=== PATIENT | male | born 1990 | race Hispanic/Latino ===

== ENCOUNTER → 2019-10-01 | Outpatient (CLI) | payer OTHER ==
[~2019-10-01] MED LIST: ISOVUE-370 76% 100ML VIAL (Q9967) As Ordered ONE
--- NOTE | 2019-10-01 12:36 | REP ---
SOFT-TISSUE CT STUDY OF THE NECK WITH IV CONTRAST: HISTORY: Right neck mass. Posterior neck mass. Rule out neoplasm. CT CONTRAST DOSE: 75 mL of intravenous Isovue 370. I am informed that the patient had a small extravasation of contrast with the initial injection attempt, approximately [address] FINDINGS: Thyroid lobes are normal and symmetric. The lung apices are clear. The visualized mediastinum is unremarkable. The submandibular glands are normal and symmetric as are the parotid glands. No abnormal fluid collection is seen. No vascular abnormality is seen. The tonsillar and peritonsillar soft tissues are unremarkable. Floor of mouth structures are intact. No glottic or subglottic airway lesion is seen. There are small mucous retention cysts in the floor the maxillary sinuses bilaterally, largest on the left measuring 1.8 cm. The visualized paranasal sinuses are otherwise clear. There are scattered normal appearing anterior cervical lymph nodes bilaterally. The largest is on the right measuring 0.9 cm in short axis dimension. There is a spherical posterior cervical lymph node at the level of the mandibular angle. This measures 0.8 x 1.0 x 1.0 cm. There are to two or three adjacent posterior cervical lymph nodes which are even smaller. No posterior cervical mass is seen. No abnormal fluid collection is seen. IMPRESSION: No definitely enlarged lymph nodes seen on either side. No cyst or mass is observed. There is one fairly superficially positioned right posterior cervical lymph node which is spherical 1 cm in greatest diameter. This could correspond to a palpable finding. Otherwise negative. Electronically Signed by Bello Hagan MD 10/01/2019 01:25 P
== END ==
LOC: M RAD 10:58
PROVIDERS: ATTEND Otolaryngology
DX: R59.0 Localized enlarged lymph nodes (principal)
CPT/HCPCS: 70491; Q9967

== ENCOUNTER → 2019-10-15 | Outpatient (CLI) | payer OTHER ==
[~2019-10-15] MED LIST changes: -ISOVUE-370 76% 100ML VIAL (Q9967) As Ordered ONE; +LIDOCAINE 1% MDV 20ML VIAL As Ordered ONE
[2019-10-15 12:30] VITALS: BP 145/82
--- NOTE | 2019-10-15 14:28 | REP ---
Ultrasound-guided right cervical lymph node biopsy This procedure was performed by EDITA Melendrez, under the direct supervision of Dr. Bruner. The risks and the benefits of the procedure were explained to the patient and informed consent was obtained both verbally and written. Directly prior to the start of the procedure, a formal time out was completed in the procedure room. The right cervical lymph node was localized using ultrasound guidance. The skin was prepped and draped in a sterile fashion. 3 ml of 1% lidocaine 10 mg/ml was used as a local anesthetic. Using ultrasound guidance 8 fine-needle aspirations were obtained using 25 gauge needles of the right cervical lymph node. The patient tolerated the procedure well and there were no immediate complications. After the appropriate amount of monitored convalescence the patient was discharged from the department. Reviewed by EDITA Melendrez 10/15/2019 01:57 P Electronically Signed by Kendall Bruner MD 10/15/2019 02:21 P
== END ==
LOC: M IRPRO 11:30
PROVIDERS: ATTEND Otolaryngology
DX: R59.0 Localized enlarged lymph nodes (principal)

== ENCOUNTER → 2020-03-17 | Outpatient (CLI) | payer OTHER ==
[~2020-03-17] MED LIST changes: +ISOVUE-370 76% 100ML VIAL As Ordered ONE; +KETO10TAB PO; -LIDOCAINE 1% MDV 20ML VIAL As Ordered ONE
--- NOTE | 2020-03-17 07:59 | REPVR ---
PROCEDURE INFORMATION: Exam: CT Neck With Contrast Exam date and time: 03/17/2020 7:39 AM Age: 29 years old Clinical indication: Mass, lump, or swelling in neck; Additional info: Enlarged lymph nodes TECHNIQUE: Imaging protocol: Computed tomography images of the neck with intravenous contrast. Radiation optimization: All CT scans at this facility use at least one of these dose optimization techniques: automated exposure control; mA and/or kV adjustment per patient size (includes targeted exams where dose is matched to clinical indication); or iterative reconstruction. Contrast material: ISOVUE 370; Contrast volume: 75 ml; Contrast route: INTRAVENOUS (IV); COMPARISON: CT Neck with contrast 10/01/2019 11:20 AM FINDINGS: Sinuses: There is mild polypoid mucosal thickening along the floors of the maxillary sinuses bilaterally. Nasopharynx: Unremarkable. Oropharynx: Unremarkable. No significant tonsillar enlargement. Hypopharynx: Unremarkable. Larynx: Unremarkable. Normal epiglottis. Retropharyngeal space: Unremarkable. Submandibular/Parotid glands: Normal. Glands are normal in size. Thyroid: Normal. No enlarged or calcified nodules. Lymph nodes: There are small, scattered multilevel cervical lymph nodes. The site of palpable abnormality along the right lateral neck appears to correlate with a 9 x 7 mm lymph node, slightly decreased in size as compared to preceding examination. There is a 15 x 10 mm left submandibular lymph node. This was present previously and appears unchanged. Trachea: Visualized trachea is unremarkable. Lungs: Unremarkable as visualized. Bones/joints: Unremarkable. No acute fracture. Soft tissues: Unremarkable. No significant soft tissue swelling. IMPRESSION: Stable scattered multilevel cervical lymph nodes, unchanged. Dominant left submandibular lymph node measures up to 15 x 10 mm in diameter. No new or progressive abnormality. Electronically signed by: Lacy Stewart On 03/17/2020 07:59:20 AM
== END ==
LOC: M RAD 07:15
PROVIDERS: ATTEND Otolaryngology
DX: R59.0 Localized enlarged lymph nodes (principal)
CPT/HCPCS: 70491; Q9967

== ENCOUNTER 2020-05-09 13:01 | Emergency (ER) | payer OTHER ==
[2020-05-09 13:27] LABS: BASO # 0.1 10^3/uL (0.0-0.2); BASO % 0.5 % (0.0-1.0); EOS # 0.3 10^3/uL (0.0-0.5); EOS % 3.4 % (0.0-3.0); HEMATOCRIT 47.5 % (42.0-52.0); HEMOGLOBIN 16.2 g/dl (13.5-17.5); LYMPH # 2.8 10^3/uL (1.5-5.0); LYMPH % 29.1 % (24.0-44.0); MEAN CORPUSCULAR HEMOGLOBIN 29.6 pg (27.0-33.0); MEAN CORPUSCULAR HGB CONC 34.1 g/dl (32.0-36.5); MEAN CORPUSCULAR VOLUME 86.8 fl (80.0-96.0); MONO # 0.7 10^3/uL (0.0-0.8); MONO % 7.7 % (0.0-5.0); NEUTROPHILS # 5.6 10^3/uL (1.5-8.5); NEUTROPHILS % 58.9 % (36.0-66.0); PLATELET COUNT, AUTOMATED 267 10^3/uL (150-450); RED BLOOD COUNT 5.47 10^6/uL (4.30-6.10); WHITE BLOOD COUNT 9.5 10^3/uL (4.0-10.0)
[2020-05-09] MEDS ORDERED: NS 1,000 ML IV ONE (13:30)
[2020-05-09] MEDS ORDERED: ISOVUE-370 76% 100ML VIAL As Ordered ONE (13:30)
[2020-05-09 13:42] LABS: INR 0.93; PROTHROMBIN TIME 12.7 SECONDS (12.5-14.3)
[2020-05-09 13:43] LABS: PARTIAL THROMBOPLASTIN TIME 27.5 SECONDS (24.2-38.5)
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
[2020-05-09 13:54] LABS: ALBUMIN 4.5 GM/DL (3.2-5.2); ALT/SGPT 43 U/L (12-78); AMYLASE 55 U/L (25-115); BILIRUBIN,DIRECT 0.1 MG/DL (0.0-0.2); BILIRUBIN,TOTAL 0.5 MG/DL (0.2-1.0); CK-MB VALUE MASS < 1.0 NG/ML (<3.6); CPK CREATINE PHOSPHOKINASE 199 U/L (39-308); ETHYL ALCOHOL (ETHANOL) < 0.003 % (0.000-0.010); LIPASE 130 U/L (73-393); TROPONIN I < 0.02 NG/ML (< 0.10)
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
[2020-05-09] MEDS ORDERED: KETOROLAC 30 MG/ML 1ML VIAL IV ONE (14:15)
[2020-05-09 14:30] VITALS: BP 161/88
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
[2020-05-09] MEDS ORDERED: KETO10TAB PO (15:41)
== END 2020-05-09 15:56 | disposition home or self-care (01) ==
LOC: EDBD 13:01 → M ED 13:01
DX: S09.90XA Unspecified injury of head, initial encounter (principal); M54.2 Cervicalgia; R10.12 Left upper quadrant pain; V49.40XA Driver injured in collision with unspecified motor vehicles in traffic accident, initial encounter; Y92.410 Unspecified street and highway as the place of occurrence of the external cause; J34.1 Cyst and mucocele of nose and nasal sinus; K76.0 Fatty (change of) liver, not elsewhere classified; N28.1 Cyst of kidney, acquired; Z79.899 Other long term (current) drug therapy
CPT/HCPCS: 70450; 71045; 71260; 72125; 74177; 80047; 80076; 82150; 82550; 82553; 83690; 84484; 85025; 85610; 85730; 86850; 86900; 86901; 93041; 94760; 96361; 96374; 99284; G0480; J1885; Q9967

== ENCOUNTER → 2020-10-05 | Outpatient (CLI) | payer OTHER ==
[~2020-10-05] MED LIST changes: -ISOVUE-370 76% 100ML VIAL As Ordered ONE
--- NOTE | 2020-10-06 04:24 | REP ---
INDICATION: SPRAIN COMPARISON: None. TECHNIQUE: AP, lateral views of the right tibia/fibula FINDINGS: The osseous structures and joint spaces are intact and normal. There is no evidence for acute fracture or dislocation. Surrounding soft tissues are unremarkable. No subcutaneous emphysema or radiodense foreign body. IMPRESSION: Age-appropriate right tibia/fibular radiographs. No acute fracture or dislocation. <Electronically signed by Tang Butler > 10/06/20 0427
--- NOTE | 2020-10-06 04:27 | REP ---
INDICATION: SPRAIN COMPARISON: None. TECHNIQUE: AP, lateral, bilateral oblique views. FINDINGS: No acute fracture or dislocation. Skeletal structures and joint spaces are intact and normal. Ankle mortise appears stable. No subcutaneous emphysema or radiodense foreign body. IMPRESSION: Normal right ankle radiograph series. <Electronically signed by Tang Butler > 10/06/20 0428
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
== END ==
LOC: M WUC 14:18
PROVIDERS: ATTEND Physician Assistant
DX: S93.401A Sprain of unspecified ligament of right ankle, initial encounter (principal); S93.691A Other sprain of right foot, initial encounter; X58.XXXA Exposure to other specified factors, initial encounter; Y92.9 Unspecified place or not applicable

== ENCOUNTER 2021-02-11 09:00 | Emergency (ER) | payer OTHER ==
[~2021-02-11] VITALS: Ht 177.8 cm; Wt 98.0 kg
[2021-02-11 11:13] LABS: HEMATOCRIT 44.2 % (42.0-52.0); HEMOGLOBIN 14.7 g/dl (13.5-17.5); MEAN CORPUSCULAR HEMOGLOBIN 29.1 pg (27.0-33.0); MEAN CORPUSCULAR HGB CONC 33.3 g/dl (32.0-36.5); MEAN CORPUSCULAR VOLUME 87.4 fl (80.0-96.0); PLATELET COUNT, AUTOMATED 204 10^3/uL (150-450); RED BLOOD COUNT 5.06 10^6/uL (4.30-6.10); WHITE BLOOD COUNT 6.3 10^3/uL (4.0-10.0)
[2021-02-11 11:46] LABS: ALBUMIN 4.3 GM/DL (3.2-5.2); ALT/SGPT 39 U/L (12-78); ATYPICAL LYMPH 9 % (0-5); BASOPHILS 1 % (0-1); BILIRUBIN,DIRECT 0.2 MG/DL (0.0-0.2); BILIRUBIN,TOTAL 0.9 MG/DL (0.2-1.0); BLOOD UREA NITROGEN 11 MG/DL (7-18); CALCIUM LEVEL 8.9 MG/DL (8.5-10.1); CARBON DIOXIDE LEVEL 29 MEQ/L (21-32); CHLORIDE LEVEL 109 MEQ/L (98-107); CREATININE FOR GFR 0.81 MG/DL (0.70-1.30); EOSINOPHILS 3 % (0-3); GLOMERULAR FILTRATION RATE > 60.0 (>60); GLUCOSE, FASTING 91 MG/DL (70-100); LIPASE 698 U/L (73-393); LYMPHOCYTES 35 % (16-44); MONOCYTES 5 % (0-5); NEUTROPHILS 47 % (28-66); PLATELET ESTIMATE NORMAL (NORMAL); POTASSIUM SERUM 4.4 MEQ/L (3.5-5.1); SODIUM LEVEL 141 MEQ/L (136-145); TOTAL PROTEIN 7.5 GM/DL (6.4-8.2)
--- NOTE | 2021-02-11 11:59 | REP ---
INDICATION: b/l scrotal/testicular pain. COMPARISON: None. TECHNIQUE: Real-time sonographic evaluation of scrotum and contents performed, as well as both inguinal regions. FINDINGS: The testicles are normal in size and echotexture, right testicle measuring 4.3 x 2.3 x 3.3 cm and left testicle 4.3 x 2.3 x 3.3 cm. There is no testicular mass or torsion. Blood flow is seen in each testicle with duplex Doppler evaluation. A 2 mm cyst is seen in the head of the right epididymis. A 4 mm cyst is seen in the appendix of the left epididymis. No inguinal hernia is seen at rest and with Valsalva maneuver. IMPRESSION: Essentially negative scrotal and bilateral inguinal ultrasound. <Electronically signed by Kendall Bruner > 02/11/21 [id number]
[2021-02-11 13:36] LABS: MONO REFLEX EBV COMP NEGATIVE (NEGATIVE)
--- NOTE | 2021-02-11 13:57 | REP ---
INDICATION: elevated lipase, LLQ TTP, b/l scrotal pain COMPARISON: 05/09/2020. TECHNIQUE: CT Scan of the abdomen and pelvis was performed with intravenous administration of 100 cc of Isovue 370, without oral contrast. Sagittal and coronal reconstruction images are performed. FINDINGS: Lung bases: Unremarkable. Liver: There is diffuse fatty infiltration of the liver. Gallbladder: Unremarkable. Spleen: Normal. Adrenals: Normal. Pancreas: Normal. Kidneys: In the lower pole the left kidney there is a 3 cm nodule. This could represent a cyst but density measurements are greater than that of water. Small and large bowel: Unremarkable. Free fluid: None. Abdominal aorta: No aneurysm or dissection. Adenopathy: None. Appendix: Not inflamed. Osseous structures: Unremarkable. Pelvis: No mass. IMPRESSION: Diffuse fatty infiltration of the liver. 3 cm hypodense nodule lower pole left kidney. The density within the nodule the is not compatible with a simple cyst, this may represent a complex cyst or solid nodule. Recommend further evaluation with dedicated nonemergent MRI of the kidneys with and without contrast. <Electronically signed by Kendall Bruner > 02/11/21 [id number]
[2021-02-11 14:03] LABS: GC DNA AMPLIFICATION NEGATIVE (NEGATIVE)
[2021-02-11 14:54] VITALS: BP 132/80
[2021-02-12 18:11] LABS: EBV AB TO NUCLEAR ANTIGEN >600.0 U/mL (0.0-17.9); EBV VIRAL CAPSID AG IgM <36.0 U/mL (0.0-35.9)
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
== END 2021-02-11 14:56 | disposition home or self-care (01) ==
LOC: M ED 09:00
DX: N50.3 Cyst of epididymis (principal); K76.0 Fatty (change of) liver, not elsewhere classified; R74.8 Abnormal levels of other serum enzymes; N28.89 Other specified disorders of kidney and ureter; I10 Essential (primary) hypertension

== ENCOUNTER 2021-02-17 16:18 | Emergency (ER) | payer OTHER ==
[~2021-02-17] VITALS: Ht 177.8 cm; Wt 97.7 kg
[2021-02-17] MEDS ORDERED: MORPHINE 4 MG/ML 1ML VIAL/SYRINGE (J2270) IV ONE (19:30)
[2021-02-17] MEDS ORDERED: GI COCKTAIL 50ML BTL(HYOSCYAMINE/MAALOX/LIDOCAINE VISCOUS)(1:3:1) PO ONE (19:30)
[2021-02-17] MEDS ORDERED: NS 1,000 ML IV ONE (19:30)
[2021-02-17] MEDS ORDERED: PANTOPRAZOLE 40MG VIAL (C9113 PER 1) IV ONE (19:30)
[2021-02-17 20:00] LABS: BASO % 0.3 % (0.0-1.0); EOS # 0.3 10^3/uL (0.0-0.5); HEMATOCRIT 44.3 % (42.0-52.0); HEMOGLOBIN 14.9 g/dl (13.5-17.5); LYMPH % 33.3 % (24.0-44.0); MEAN CORPUSCULAR HEMOGLOBIN 28.9 pg (27.0-33.0); MEAN CORPUSCULAR HGB CONC 33.6 g/dl (32.0-36.5); MONO # 0.7 10^3/uL (0.0-0.8); MONO % 7.2 % (2.0-8.0); NEUTROPHILS % 55.9 % (36.0-66.0); PLATELET COUNT, AUTOMATED 213 10^3/uL (150-450); RED BLOOD COUNT 5.15 10^6/uL (4.30-6.10)
[2021-02-17 20:33] LABS: ALBUMIN 4.6 GM/DL (3.2-5.2); BILIRUBIN,DIRECT 0.2 MG/DL (0.0-0.2); BILIRUBIN,TOTAL 0.7 MG/DL (0.2-1.0); TOTAL PROTEIN 7.8 GM/DL (6.4-8.2)
[2021-02-17 22:47] LABS: GC DNA AMPLIFICATION NEGATIVE (NEGATIVE)
[2021-02-17] MEDS ORDERED: BACTRIM 160MG/800MG DS TAB PO ONE (23:20)
[2021-02-17 23:35] VITALS: BP 121/73
[2021-02-17] MEDS ORDERED: CARA1TAB6 PO (23:40)
[2021-02-17] MEDS ORDERED: OMEP-221 PO (23:40)
[2021-02-17] MEDS ORDERED: MACR100C43 PO (23:40)
== END 2021-02-17 23:50 | disposition home or self-care (01) ==
LOC: M ED 21:02
DX: R10.13 Epigastric pain (principal); R30.0 Dysuria; I10 Essential (primary) hypertension; Z79.899 Other long term (current) drug therapy
CPT/HCPCS: 80047; 80076; 81001; 83690; 85025; 87086; 87661; 96361; 96374; 96375; 99284; C9113; J2270

== ENCOUNTER → 2021-02-22 | Outpatient (CLI) | payer OTHER ==
[~2021-02-22] MED LIST changes: +CARA1TAB6 PO; +MACR100C43 PO; +OMEP-221 PO; +PROHANCE 279.3MG/ML 15ML VIAL As Ordered ONE; +PROHANCE 279.3MG/ML 5ML VIAL As Ordered ONE
--- NOTE | 2021-02-22 16:51 | REP ---
INDICATION: LT KIDNEY NODULE. COMPARISON: CT 02/11/2021. TECHNIQUE: Multiple sequences obtained in the axial coronal planes prior to and following the intravenous administration of 20 mL ProHance. FINDINGS: The previously identified nodule in the lower left kidney is again visualized. It has slightly lobulated margins with a maximum diameter of 3 cm. It demonstrates characteristics of hemorrhagic or proteinaceous contents with no internal enhancement. This is consistent with a complex hemorrhagic or proteinaceous cyst. There is a subcentimeter cyst in the upper pole of the right kidney. There is no hydronephrosis bilaterally. There is evidence of fatty infiltration of the liver. No mass is seen in the visualized liver. The spleen, adrenals and pancreas are unremarkable. There is no evidence of adenopathy or free fluid in the abdomen. IMPRESSION: The previously identified nodule in the left kidney is consistent with a proteinaceous or hemorrhagic cyst. No suspicious finding. <Electronically signed by Kendall Bruner > 02/22/21 [id number]
== END ==
LOC: M RAD 13:46
PROVIDERS: ATTEND Physician Assistant
DX: R93.422 Abnormal radiologic findings on diagnostic imaging of left kidney (principal); N28.1 Cyst of kidney, acquired; N28.89 Other specified disorders of kidney and ureter
CPT/HCPCS: 74183; A9576

== ENCOUNTER 2021-05-17 06:04 | Emergency (ER) | payer OTHER ==
[~2021-05-17] VITALS: Ht 175.3 cm; Wt 97.5 kg
[~2021-05-17 06:04] MED LIST changes: -PROHANCE 279.3MG/ML 15ML VIAL As Ordered ONE; -PROHANCE 279.3MG/ML 5ML VIAL As Ordered ONE
--- OUTSIDE RECORDS SUMMARY | 2021-05-17 06:08 | CCD ---
Author Author [facility] Organization [facility] Address Unknown Phone Unavailable Care Team Providers Care Electro Mechanical Technologist Name Role Phone RAISSAE, A ZEESHAN PA Unavailable Unavailable LETTIERE, A ZEESHAN PA Unavailable Unavailable LETTIERE, A ZEESHAN PA Unavailable Unavailable LETTIERE, A ZEESHAN PA Unavailable Unavailable LETTIERE, A ZEESHAN PA Unavailable Unavailable LETTIERE, A ZEESHAN PA Unavailable Unavailable LETTIERE, A ZEESHAN PA Unavailable Unavailable LETTIERE, A ZEESHAN PA Unavailable Unavailable LETTIERE, A ZEESHAN PA Unavailable Unavailable LETTIERE, A ZEESHAN PA Unavailable Unavailable LETTIERE, A ZEESHAN PA Unavailable Unavailable LETTIERE, A ZEESHAN PA Unavailable Unavailable LETTIERE, A ZEESHAN PA Unavailable Unavailable LETTIERE, A ZEESHAN PA Unavailable Unavailable LETTIERE, A ZEESHAN PA Unavailable Unavailable LETTIERE, A ZEESHAN PA Unavailable Unavailable LETTIERE, A ZEESHAN PA Unavailable Unavailable LETTIERE, A ZEESHAN PA Unavailable Unavailable LETTIERE, A ZEESHAN PA Unavailable Unavailable LETTIERE, A ZEESHAN PA Unavailable Unavailable LETTIERE, A ZEESHAN PA Unavailable Unavailable LETTIERE, A ZEESHAN PA Unavailable Unavailable LETTIERE, A ZEESHAN PA Unavailable Unavailable LETTIERE, A ZEESHAN PA Unavailable Unavailable LETTIERE, A ZEESHAN PA Unavailable Unavailable LETTIERE, A ZEESHAN PA Unavailable Unavailable LETTIERE, A ZEESHAN PA Unavailable Unavailable LETTIERE, A ZEESHAN PA Unavailable Unavailable LETTIERE, A ZEESHAN PA Unavailable Unavailable LETTIERE, A ZEESHAN PA Unavailable Unavailable LETTIERE, A ZEESHAN PA Unavailable Unavailable Re-disclosure Warning The records that you are about to access may contain information from federally-assisted alcohol or drug abuse programs. If such information is present, then the following federally mandated warning applies: This information has been disclosed to you from records protected by federal confidentiality rules (42 CFR part 2). The federal rules prohibit you from making any further disclosure of this information unless further disclosure is expressly permitted by the written consent of the person to whom it pertains or as otherwise permitted by 42 CFR part 2. A general authorization for the release of medical or other information is NOT sufficient for this purpose. The Federal rules restrict any use of the information to criminally investigate or prosecute any alcohol or drug abuse patient.The records that you are about to access may contain highly sensitive health information, the redisclosure of which is protected by Article 27-F of the [facility] Public Health law. If you continue you may have access to information: Regarding HIV / AIDS; Provided by facilities licensed or operated by the [facility] Office of Mental Health; or Provided by the [facility] Office for People With Developmental Disabilities. If such information is present, then the following [facility] mandated warning applies: This information has been disclosed to you from confidential records which are protected by state law. State law prohibits you from making any further disclosure of this information without the specific written consent of the person to whom it pertains, or as otherwise permitted by law. Any unauthorized further disclosure in violation of state law may result in a fine or custodial sentence or both. A general authorization for the release of medical or other information is NOT sufficient authorization for further disc losure. Encounters Encounter Providers Location Date Indications Data Source(s ) Outpatient Attender: ZEESHAN parsons 10/05/2020 03:05:00 PM EDT [facility] ([facility], [facility]) Medications Medication Brand Name Start Date Product Form Dose Route Admi nistrative Instructions Pharmacy Instructions Status Indications Reaction Description Data Source(s) No Active Medications 10/05/2020 12:00:00 AM EDT completed [facility] ([facility], [facility]) Aircast Sport Ankle Brace/Right 10/05/2020 12:00:00 AM EDT active [facility] ([facility], [facility]) Ibuprofen 800 MG Oral Tablet Ibuprofen 10/05/2020 12:00:00 AM EDT active [facility] ([facility], [facility]) Cyclobenzaprine hydrochloride 10 MG Oral Tablet Cyclobenzapr ine HCL 10/05/2020 12:00:00 AM EDT [facility] Insurance Providers Payer name Policy type / Coverage type Policy ID Covered libertarian ID Covered libertarian's relationship to hernandez Policy Hernandez Plan Information [facility] ACTIVE DUTY [id number] Problems, Conditions, and Diagnoses No Information Surgeries/Procedures No Information Results ID Date Data Source [id number] 01/31/2021 01:38:00 PM EDT [facility] Name Value Range Interpretation Code Description Data Yuko rce(s) Supporting Document(s) SARS coronavirus 2 RNA Not Detected [facility] [place] This lab was ordered by [facility] and reported by [facility]. Procedure Social History No Information Vital Signs ID Date Data Source UNK Name Value Range Interpretation Code Description Data Source(s) Systolic blood pressure 148 mm[Hg] 148 mm[Hg] [facility]) Diastolic blood pressure 89 mm[Hg] 89 mm[Hg] [facility] ([facility], [facility]) Heart rate 67 /min 67 /min [facility] ([facility], [facility]) Respiratory rate 14 /min 14 /min [facility] ( [facility], [facility]) Oxygen saturation in Arterial blood by Pulse oximetry 98 % 98 % [facility] ([facility], [facility]) Body temperature 98.7 [degF] 98.7 [degF] [facility] ([facility], [facility]) Body weight 220.00 [lb_av] 220.00 [lb_av] [facility] ([facility], [facility]) Body height 70 [in_i] 70 [in_i] [facility], [facility]) 5'10" Body mass index (BMI) [Ratio] 31.6 kg/m2 31.6 k g/m2 [facility] ([facility], [facility]) Body height 69 [in_i] 69 [in_i] [facility] ([facility], ) 5'9" Body weight 220.00 [lb_av] 220.00 [lb_av] [facility] ([facility]) Body mass index (BMI) [Ratio] 32.5 kg/m2 32.5 k g/m2 [facility], ) Body weight 99.792 kg 99.792 kg [facility] ([facility], )
--- OUTSIDE RECORDS SUMMARY | 2021-05-17 07:47 | CCD ---
Author Author [facility] Organization [facility] Address Unknown Phone Unavailable Care Team Providers Care Sfdc Developer Name Role Phone RAISSAE, A ZEESHAN PA [...] is protected by Article 27-F of the [facility] Public Health law. If you continue you may have access to information: Regarding HIV / AIDS; Provided by facilities licensed or operated by the [facility] Office of Mental Health; or Provided by the [facility] Office for People With Developmental Disabilities. If such information is present, then the following [facility] mandated warning applies: This information has been [...] law may result in a fine or fci sentence or both. A general authorization for the release of medical or other information is NOT sufficient authorization for further disc losure. Encounters Encounter Providers Location Date Indications Data Source(s ) Outpatient Attender: ZEESHAN parsons 10/05/2020 03:05:00 PM EDT [facility] ([facility], [facility]) Medications Medication Brand Name Start Date Product Form Dose Route Admi nistrative Instructions Pharmacy Instructions Status Indications Reaction Description Data Source(s) No Active Medications 10/05/2020 12:00:00 AM EDT completed [facility] ([facility], [facility]) Aircast Sport Ankle Brace/Right 10/05/2020 12:00:00 AM EDT active [facility] ([facility], [facility]) Ibuprofen 800 MG Oral Tablet Ibuprofen 10/05/2020 12:00:00 AM EDT active [facility] ([facility], [facility]) Cyclobenzaprine hydrochloride 10 MG Oral Tablet Cyclobenzapr ine HCL 10/05/2020 12:00:00 AM [facility]T [facility]) Insurance Providers Payer name Policy type / Coverage type Policy ID Covered libertarian ID Covered libertarian's relationship to hernandez Policy Hernandez Plan Information [employer] [id number] Problems, Conditions, and Diagnoses No Information Surgeries/Procedures No Information Results ID Date Data Source [id number] 01/31/2021 01:38:00 PM EDT [facility] Name Value Range Interpretation Code Description Data Yuko rce(s) Supporting Document(s) SARS coronavirus 2 RNA Not Detected [facility] [place] This lab was ordered by [facility] and reported by [facility]. Procedure Social History No Information Vital Signs ID Date Data Source UNK Name Value Range Interpretation Code Description Data Source(s) Systolic blood pressure 148 mm[Hg] 148 mm[Hg] [facility] ([facility], [facility]) Diastolic blood pressure 89 mm[Hg] 89 mm[Hg] [facility] ([facility], [facility]) Heart rate 67 /min 67 /min [facility] [place], [facility]) Respiratory rate 14 /min 14 /min [facility] ( [facility], [facility]) Oxygen saturation in Arterial blood by Pulse oximetry 98 % 98 % [facility] ([facility], [facility]) Body temperature 98.7 [degF] 98.7 [degF] [facility] ([facility], [facility]) Body weight 220.00 [lb_av] 220.00 [lb_av] [facility] ([facility], [facility]) Body height 70 [in_i] 70 [in_i] [facility], [facility]) 5'10" Body mass index (BMI) [Ratio] 31.6 kg/m2 31.6 k g/m2 [facility] ([facility], [facility]) Body height 69 [in_i] 69 [in_i] [facility], ) 5'9" Body weight 220.00 [lb_av] 220.00 [lb_av] [facility] ([facility]) Body mass index (BMI) [Ratio] 32.5 kg/m2 32.5 k g/m2 [facility], ) Body weight 99.792 kg 99.792 kg [facility] ([facility], )
--- NOTE | 2021-05-17 09:09 | REP ---
INDICATION: CHEST PAIN. COMPARISON: 05/09/2020. TECHNIQUE: Single portable AP view of the chest was performed. FINDINGS: There is no acute infiltrate or pulmonary edema. Lungs are clear. The heart is not significantly enlarged. The mediastinal silhouette is unremarkable. The visualized osseous structures are intact. IMPRESSION: No acute pulmonary disease. <Electronically signed by Kendall Bruner > 05/17/21 0905
[2021-05-17 09:41] LABS: BASO % 0.5 % (0.0-1.0); EOS # 0.2 10^3/uL (0.0-0.5); EOS % 2.7 % (0.0-3.0); HEMATOCRIT 46.8 % (42.0-52.0); HEMOGLOBIN 15.9 g/dl (13.5-17.5); LYMPH # 2.7 10^3/uL (1.5-5.0); LYMPH % 34.5 % (24.0-44.0); MEAN CORPUSCULAR VOLUME 85.2 fl (80.0-96.0); MONO # 0.5 10^3/uL (0.0-0.8); MONO % 6.1 % (2.0-8.0); NEUTROPHILS # 4.3 10^3/uL (1.5-8.5); NEUTROPHILS % 55.8 % (36.0-66.0); PLATELET COUNT, AUTOMATED 257 10^3/uL (150-450); RED BLOOD COUNT 5.49 10^6/uL (4.30-6.10); WHITE BLOOD COUNT 7.8 10^3/uL (4.0-10.0)
[2021-05-17 09:56] LABS: RSV AMPLIFICATION NEGATIVE (NEGATIVE)
[2021-05-17 10:47] LABS: ALT/SGPT 42 IU/L (0-32); BLOOD UREA NITROGEN 10 MG/DL (7-18); CALCIUM LEVEL 9.6 MG/DL (8.5-10.1); CARBON DIOXIDE LEVEL 30 mmol/L (20-29); CHLORIDE LEVEL 104 MEQ/L (98-107); CPK CREATINE PHOSPHOKINASE 180 U/L (39-308); CREATININE FOR GFR 0.93 MG/DL (0.70-1.30); GLOMERULAR FILTRATION RATE > 60.0 (>60); GLUCOSE, FASTING 95 MG/DL (70-100); POTASSIUM SERUM 4.2 MEQ/L (3.5-5.1); SODIUM LEVEL 140 MEQ/L (136-145)
[2021-05-17 10:48] LABS: ALBUMIN 4.6 GM/DL (3.2-5.2); BILIRUBIN,DIRECT 0.2 MG/DL (0.0-0.2); BILIRUBIN,TOTAL 0.8 MG/DL (0.2-1.0); CK-MB VALUE MASS < 1.0 NG/ML (<3.6); LIPASE 104 U/L (73-393); MB/CK RELATIVE INDEX 0.55 (< OR =4); TOTAL PROTEIN 8.2 GM/DL (6.4-8.2); TROPONIN I < 0.02 NG/ML (< 0.10)
[2021-05-17 12:32] LABS: C REACTIVE PROTEIN QUANTITATIV 0.35 MG/DL (0.00-0.30)
--- NOTE | 2021-05-17 12:32 | REP ---
INDICATION: headache 4 days, temporal pain. COMPARISON: 05/09/2020. TECHNIQUE: CT soft tissue and bone window axials with coronal reconstructions provided. FINDINGS: Lateral ventricles are midline, symmetric and without dilatation or displacement. Third and 4th ventricles also unremarkable. There is no cortical atrophy. The basal ganglia are symmetric and normal. Bruner-white junction differentiation well-maintained. No white matter tract abnormalities are identified. There is no vascular territory infarct, intracranial hemorrhage, mass or mass effect. Brainstem and cerebellum were unremarkable the posterior fossa. There is no hemorrhage or mass. Basal cisterns are intact. Visualized mastoids, sinuses, skull base and calvarium are all unremarkable. IMPRESSION: Negative noncontrast CT brain. <Electronically signed by Praneeth Veronica > 05/17/21 1807
[2021-05-17] MEDS ORDERED: KETOROLAC 30 MG/ML 1ML VIAL IV ONE (12:50)
[2021-05-17 13:28] LABS: ERYTHROCYTE SEDIMENTATION RATE 2 mm/hr (0-15)
[2021-05-17 14:03] VITALS: BP 128/83
--- NOTE | 2021-05-17 19:30 | ECGEPIP ---
[facility] - ED Test Date: 2021-05-17 Pat Name: MARI LAND Department: Room: - Gender: Male [employer] Clerk: : 1990 Requested By: Jess Treviño PA-C Order Number: [id number] Reading MD: Юлия Melo Measurements Intervals Umbarger Rate: 52 P: 31 VA: 148 QRS: 4 QRSD: 94 T: 21 QT: 448 QTc: 416 Interpretive Statements Sinus bradycardia Nonspecific ST T wave changes No prior ECG for comparison Electronically Signed on 05-17-2021 19:29:45 EST by Юлия Melo
== END 2021-05-17 14:05 | disposition home or self-care (01) ==
LOC: M ED 06:04
DX: R07.89 Other chest pain (principal); R51.9 Headache, unspecified; G89.29 Other chronic pain; R10.9 Unspecified abdominal pain; M54.9 Dorsalgia, unspecified; R11.0 Nausea
CPT/HCPCS: 70450; 71045; 80048; 80076; 82550; 82553; 83690; 84484; 85025; 85379; 85652; 86140; 87631; 93005; 93041; 96374; 99284; J1885

== ENCOUNTER 2021-07-29 09:35 | Inpatient (IN) | payer OTHER ==
[~2021-07-29] VITALS: Ht 175.3 cm; Wt 107.2 kg
[~2021-07-29 09:35] MED LIST changes: -OMEP-221 PO; +OMEP40CA5 PO
[2021-07-29] MEDS ORDERED: PANT40TA29 PO (09:47)
[2021-07-29] MEDS ORDERED: METH4PACK PO (09:47)
[2021-07-29] MEDS ORDERED: PERC5TAB12 PO (09:47)
[2021-07-29] MEDS ORDERED: CLIN-250 PO (09:47)
[2021-07-29 11:12] LABS: BASO % 0.1 % (0.0-1.0); EOS % 0.2 % (0.0-3.0); HEMATOCRIT 44.1 % (42.0-52.0); HEMOGLOBIN 15.4 g/dl (13.5-17.5); LYMPH # 1.5 10^3/uL (1.5-5.0); MEAN CORPUSCULAR HGB CONC 34.9 g/dl (32.0-36.5); MEAN CORPUSCULAR VOLUME 85.8 fl (80.0-96.0); MONO # 0.7 10^3/uL (0.0-0.8); MONO % 4.8 % (2.0-8.0); NEUTROPHILS # 11.4 10^3/uL (1.5-8.5); NEUTROPHILS % 83.3 % (36.0-66.0); PLATELET COUNT, AUTOMATED 239 10^3/uL (150-450); RED BLOOD COUNT 5.14 10^6/uL (4.30-6.10); WHITE BLOOD COUNT 13.7 10^3/uL (4.0-10.0)
[2021-07-29 11:38] LABS: BLOOD UREA NITROGEN 11 MG/DL (7-18); C REACTIVE PROTEIN QUANTITATIV 0.58 MG/DL (0.00-0.30); CALCIUM LEVEL 8.8 MG/DL (8.5-10.1); CARBON DIOXIDE LEVEL 27 MEQ/L (21-32); CHLORIDE LEVEL 106 MEQ/L (98-107); CREATININE FOR GFR 0.96 MG/DL (0.70-1.30); ERYTHROCYTE SEDIMENTATION RATE 3 mm/hr (0-15); GLOMERULAR FILTRATION RATE > 60.0 (>60); GLUCOSE, FASTING 107 MG/DL (70-100); POTASSIUM SERUM 4.3 MEQ/L (3.5-5.1); SODIUM LEVEL 138 MEQ/L (136-145)
[2021-07-29] MEDS ORDERED: KETOROLAC 30 MG/ML 1ML VIAL IV ONE ×3 (12:45→18:15)
[2021-07-29] MEDS ORDERED: PIPERACILLIN/TAZOBACTAM SOD 3.375 GM in D5W MINI-BAG PLUS 50 ML IV ONE (12:55)
[2021-07-29] MEDS ORDERED: VANCOMYCIN HCL 1,000 MG, VIAL MATE ADAPTER 1 EACH in NS 250 ML IV ONE (12:55)
[2021-07-29] MEDS ORDERED: ACETAMINOPHEN TAB 650MG DOSE (2X325MG) PO PRN (13:15)
[2021-07-29] MEDS ORDERED: KETOROLAC 30 MG/ML 1ML VIAL IV PRN (13:15)
[2021-07-29] MEDS: D5W/0.45% SODIUM CHLORIDE 1,000 ML IV SCH ×2 (13:30→21:04)
[2021-07-29] MEDS ORDERED: HOME MED LIST COMPLETE! XX SCH (13:30)
[2021-07-29] MEDS ORDERED: MORPHINE 10 MG/ML 1ML VIAL (J2270) IV PRN (13:35)
[2021-07-29] MEDS ORDERED: MORPHINE 10 MG/ML 1ML VIAL (J2270) IV ONE (14:40)
[2021-07-29 15:12] LABS: INR 0.96; PROTHROMBIN TIME 13.2 SECONDS (12.7-14.5)
[2021-07-29 15:13] LABS: PARTIAL THROMBOPLASTIN TIME 28.1 SECONDS (25.9-37.0)
[2021-07-29] MEDS ORDERED: LIDOCAINE 2% 100MG/5ML SDV (FOR ANES.) As Ordered ONE ×2 (15:47→17:20)
[2021-07-29] MEDS ORDERED: fentaNYL 100 MCG/2 ML INJECTION (J3010) As Ordered ONE ×2 (15:47→17:59)
[2021-07-29] MEDS ORDERED: MIDAZOLAM INJ 2MG/2ML VIAL (J2250 PER 1MG) As Ordered ONE (15:47)
[2021-07-29] MEDS ORDERED: propofoL 200 MG/20 ML VIAL As Ordered ONE ×3 (15:47→17:33)
[2021-07-29] MEDS ORDERED: BUPIVACAINE HCL 0.25% 30ML VIAL As Ordered ONE (15:49)
[2021-07-29] MEDS ORDERED: ceFAZolin 1GM VIAL (J0690 PER 500MG) As Ordered ONE ×2 (17:04→17:05)
[2021-07-29] MEDS ORDERED: PERCOCET 5MG/325MG TAB PO PRN (17:55)
[2021-07-29] MEDS ORDERED: MORPHINE 4 MG/ML 1ML VIAL/SYRINGE (J2270) IV PRN (17:55)
[2021-07-29] MEDS ORDERED: ONDANSETRON 4MG/2ML VIAL As Ordered ONE (17:59)
[2021-07-29] MEDS ORDERED: LR 1,000 ML IV SCH (18:05)
[2021-07-29] MEDS ORDERED: VANCOMYCIN HCL 1,000 MG, VIAL MATE ADAPTER 1 EACH in NS 250 ML IV SCH (18:05)
[2021-07-29] MEDS ORDERED: PIPERACILLIN/TAZOBACTAM SOD 3.375 GM in D5W MINI-BAG PLUS 50 ML IV SCH (18:05)
[2021-07-29] MEDS ORDERED: ONDANSETRON 4MG/2ML VIAL IV PRN (18:05)
[2021-07-29] MEDS: fentaNYL 100 MCG/2 ML INJECTION (J3010) IV PRN ×4 (18:09→18:25)
[2021-07-29] MEDS: oxyCODONE 5MG TAB PO PRN ×2 (18:13→18:46)
[2021-07-29 19:05] VITALS: BP 117/62
[2021-07-29 19:45] VITALS: BP 119/67
[2021-07-29 20:15] VITALS: BP 120/65
[2021-07-29] MEDS: PIPERACILLIN/TAZOBACTAM SOD 3.375 GM in D5W MINI-BAG PLUS 50 ML IV SCH (20:17)
[2021-07-29 21:15] VITALS: BP 120/69
[2021-07-29 22:15] VITALS: BP 117/62
[2021-07-29 23:15] VITALS: BP 129/76
[2021-07-30] MEDS: KETOROLAC 30 MG/ML 1ML VIAL IV SCH ×3 (00:32→12:22)
[2021-07-30] MEDS: PIPERACILLIN/TAZOBACTAM SOD 3.375 GM in D5W MINI-BAG PLUS 50 ML IV SCH ×2 (01:54→09:02)
[2021-07-30 02:00] VITALS: BP 119/68
[2021-07-30 06:00] VITALS: BP 127/75
[2021-07-30 07:20] LABS: BASO % 0.4 % (0.0-1.0); EOS # 0.1 10^3/uL (0.0-0.5); EOS % 1.4 % (0.0-3.0); HEMATOCRIT 40.9 % (42.0-52.0); HEMOGLOBIN 13.7 g/dl (13.5-17.5); LYMPH # 2.5 10^3/uL (1.5-5.0); LYMPH % 29.6 % (24.0-44.0); MEAN CORPUSCULAR HEMOGLOBIN 29.2 pg (27.0-33.0); MEAN CORPUSCULAR HGB CONC 33.5 g/dl (32.0-36.5); MEAN CORPUSCULAR VOLUME 87.2 fl (80.0-96.0); MONO # 0.9 10^3/uL (0.0-0.8); MONO % 10.4 % (2.0-8.0); NEUTROPHILS # 4.9 10^3/uL (1.5-8.5); NEUTROPHILS % 57.6 % (36.0-66.0); PLATELET COUNT, AUTOMATED 209 10^3/uL (150-450); RED BLOOD COUNT 4.69 10^6/uL (4.30-6.10); WHITE BLOOD COUNT 8.4 10^3/uL (4.0-10.0)
[2021-07-30 07:41] LABS: HEMOGLOBIN A1c 5.3 %
[2021-07-30 07:56] LABS: BLOOD UREA NITROGEN 15 MG/DL (7-18); CALCIUM LEVEL 8.5 MG/DL (8.5-10.1); CARBON DIOXIDE LEVEL 28 MEQ/L (21-32); CHLORIDE LEVEL 108 MEQ/L (98-107); CHOLESTEROL LEVEL 217 MG/DL (<200); CHOLESTEROL RISK RATIO 4.617 (<5); CREATININE FOR GFR 1.35 MG/DL (0.70-1.30); GLOMERULAR FILTRATION RATE > 60.0 (>60); GLUCOSE, FASTING 102 MG/DL (70-100); HDL CHOLESTEROL 47 MG/DL (>40); LDL CHOLESTEROL 148 MG/DL (<100); NON-HDL-C 170 MG/DL; POTASSIUM SERUM 3.6 MEQ/L (3.5-5.1); SODIUM LEVEL 139 MEQ/L (136-145); TRIGLYCERIDES LEVEL 111 MG/DL (<150)
[2021-07-30] MEDS: VANCOMYCIN HCL 1,000 MG, VIAL MATE ADAPTER 1 EACH in NS 250 ML IV SCH ×3 (08:17→21:48)
[2021-07-30] MEDS: D5W/0.45% SODIUM CHLORIDE 1,000 ML IV SCH (09:03)
[2021-07-30 10:00] VITALS: BP 129/77
[2021-07-30 14:00] VITALS: BP 119/75
[2021-07-30 17:55] VITALS: BP 129/76
[2021-07-30] MEDS ORDERED: ENOXAPARIN 40MG/0.4ML SYRINGE (J1650 PER 10MG) SC SCH (18:00)
[2021-07-30 21:58] VITALS: BP 129/70
[2021-07-31 06:00] VITALS: BP 127/72
[2021-07-31] MEDS: VANCOMYCIN HCL 1,000 MG, VIAL MATE ADAPTER 1 EACH in NS 250 ML IV SCH (06:11)
[2021-07-31 09:25] LABS: BASO % 0.4 % (0.0-1.0); EOS # 0.1 10^3/uL (0.0-0.5); EOS % 1.6 % (0.0-3.0); HEMOGLOBIN 14.2 g/dl (13.5-17.5); LYMPH # 2.2 10^3/uL (1.5-5.0); LYMPH % 24.7 % (24.0-44.0); MEAN CORPUSCULAR HEMOGLOBIN 29.4 pg (27.0-33.0); MEAN CORPUSCULAR HGB CONC 33.8 g/dl (32.0-36.5); MONO # 0.8 10^3/uL (0.0-0.8); MONO % 9.2 % (2.0-8.0); NEUTROPHILS # 5.8 10^3/uL (1.5-8.5); NEUTROPHILS % 63.8 % (36.0-66.0); PLATELET COUNT, AUTOMATED 214 10^3/uL (150-450); RED BLOOD COUNT 4.83 10^6/uL (4.30-6.10)
[2021-07-31 09:50] LABS: BLOOD UREA NITROGEN 11 MG/DL (7-18); CARBON DIOXIDE LEVEL 29 MEQ/L (21-32); CHLORIDE LEVEL 109 MEQ/L (98-107); CREATININE FOR GFR 1.22 MG/DL (0.70-1.30); GLOMERULAR FILTRATION RATE > 60.0 (>60); GLUCOSE, FASTING 87 MG/DL (70-100); POTASSIUM SERUM 4.1 MEQ/L (3.5-5.1); SODIUM LEVEL 141 MEQ/L (136-145)
[2021-07-31] MEDS ORDERED: BACT800T5 PO (10:36)
[2021-07-31] MEDS ORDERED: ACET1TAB37 PO (10:36)
== END 2021-07-31 12:15 | disposition home or self-care (01) | DRG 983 ==
LOC: M ED 09:35 → M ED INP 13:08 → ENRESERV 14:44 → M MS5PR 18:54
PROVIDERS: ADMIT General Practice; ATTEND General Practice
PROC: 0JDJ0ZZ Extraction of Right Hand Subcutaneous Tissue and Fascia, Open Approach (ICD-10-PCS; principal; 2021-07-29 16:00)
DX: L02.511 Cutaneous abscess of right hand (principal); I10 Essential (primary) hypertension; K21.9 Gastro-esophageal reflux disease without esophagitis; B95.62 Methicillin resistant Staphylococcus aureus infection as the cause of diseases classified elsewhere; Z79.899 Other long term (current) drug therapy

== ENCOUNTER 2021-08-19 13:09 | Day surgery (SDC) | payer OTHER ==
[~2021-08-19] VITALS: Ht 175.3 cm; Wt 100.2 kg
[~2021-08-19 13:09] MED LIST changes: +ACET1TAB37 PO; +BACT800T5 PO; +CLIN-250 PO; +METH4PACK PO; +NS 1,000 ML IV ONE; +PANT40TA29 PO; +PERC5TAB12 PO
[2021-08-19] MEDS ORDERED: fentaNYL 100 MCG/2 ML INJECTION As Ordered ONE (14:39)
[2021-08-19] MEDS ORDERED: propofoL 200 MG/20 ML VIAL As Ordered ONE (14:39)
[2021-08-19] MEDS ORDERED: LIDOCAINE 2% 100MG/5ML SDV (FOR ANES.) As Ordered ONE (14:39)
[2021-08-19 15:15] VITALS: BP 142/93
[2021-08-20] MEDS ORDERED: CIPR-249 PO ×2 (06:06→06:07)
== END 2021-08-19 15:55 | disposition home or self-care (01) ==
LOC: M OPP 13:09
PROVIDERS: ATTEND Internal Medicine Gastroenterology
DX: K29.70 Gastritis, unspecified, without bleeding (principal); R10.13 Epigastric pain
CPT/HCPCS: 43239; 88305; 88342; J3010

== ENCOUNTER 2021-08-20 02:59 | Emergency (ER) | payer OTHER ==
[~2021-08-20] VITALS: Ht 180.3 cm; Wt 99.5 kg
[~2021-08-20 02:59] MED LIST changes: -NS 1,000 ML IV ONE
[2021-08-20 03:33] LABS: APPEARANCE, URINE MANUAL HAZY (CLEAR); COLOR, URINE MANUAL PINK (YELLOW)
[2021-08-20 03:34] LABS: BILIRUBIN, URINE MANUAL NEGATIVE (NEGATIVE); BLOOD URINE MANUAL POSITIVE (NEGATIVE); GLUCOSE, URINE (UA) MANUAL NEGATIVE (NEGATIVE); KETONE, URINE MANUAL NEGATIVE (NEGATIVE); LEUKOCYTE ESTERASE, URINE MAN POSITIVE (NEGATIVE); NITRITE, URINE MANUAL NEGATIVE (NEGATIVE); PH,URINE MAN 6.5 UNITS (5.0 - 7.0); PROTEIN, URINE MANUAL 1+ mg/dL (NEGATIVE); SPECIFIC GRAVITY,URINE MANUAL 1.005 (1.002-1.035); UROBILINOGEN, URINE MANUAL NORMAL (NORMAL)
[2021-08-20] MEDS ORDERED: ONDANSETRON 4MG/2ML VIAL IV ONE (03:35)
[2021-08-20] MEDS ORDERED: KETOROLAC 30 MG/ML 1ML VIAL IV ONE (03:35)
[2021-08-20] MEDS ORDERED: NS 1,000 ML IV ONE (03:35)
[2021-08-20 03:40] LABS: RBC, URINE 30-40 /hpf (0-3); WBC, URINE 15-20 /hpf (0-3)
[2021-08-20 03:42] LABS: BACTERIA, URINE SMALL AMOUNT; HYALINE CAST, URINE NONE SEEN /lpf (0-1); SQUAMOUS EPITHELIAL CELL URINE SMALL AMOUNT /hpf (SMALL AMT)
[2021-08-20 03:43] LABS: AMORPHOUS SEDIMENT, URINE SMALL AMOUNT (NEGATIVE)
[2021-08-20 04:02] LABS: BASO % 0.3 % (0.0-1.0); EOS # 0.2 10^3/uL (0.0-0.5); EOS % 2.1 % (0.0-3.0); HEMATOCRIT 45.5 % (42.0-52.0); HEMOGLOBIN 15.3 g/dl (13.5-17.5); LYMPH # 1.9 10^3/uL (1.5-5.0); LYMPH % 21.3 % (24.0-44.0); MEAN CORPUSCULAR HGB CONC 33.6 g/dl (32.0-36.5); MEAN CORPUSCULAR VOLUME 86.3 fl (80.0-96.0); MONO # 0.7 10^3/uL (0.0-0.8); MONO % 7.8 % (2.0-8.0); NEUTROPHILS # 6.1 10^3/uL (1.5-8.5); NEUTROPHILS % 68.2 % (36.0-66.0); PLATELET COUNT, AUTOMATED 257 10^3/uL (150-450); RED BLOOD COUNT 5.27 10^6/uL (4.30-6.10); WHITE BLOOD COUNT 8.9 10^3/uL (4.0-10.0)
[2021-08-20 04:27] LABS: ALBUMIN 4.2 GM/DL (3.2-5.2); ALT/SGPT 41 U/L (12-78); BILIRUBIN,DIRECT 0.1 MG/DL (0.0-0.2); BILIRUBIN,TOTAL 0.7 MG/DL (0.2-1.0); BLOOD UREA NITROGEN 10 MG/DL (7-18); CALCIUM LEVEL 8.7 MG/DL (8.5-10.1); CARBON DIOXIDE LEVEL 27 MEQ/L (21-32); CHLORIDE LEVEL 104 MEQ/L (98-107); CREATININE FOR GFR 0.98 MG/DL (0.70-1.30); GLOMERULAR FILTRATION RATE > 60.0 (>60); GLUCOSE, FASTING 101 MG/DL (70-100); LIPASE 129 U/L (73-393); POTASSIUM SERUM 3.9 MEQ/L (3.5-5.1); SODIUM LEVEL 139 MEQ/L (136-145); TOTAL PROTEIN 8.2 GM/DL (6.4-8.2)
[2021-08-20] MEDS ORDERED: CIPROFLOXACIN 500MG TABLET PO ONE (06:05)
[2021-08-20] MEDS ORDERED: CIPR-249 PO ×2 (06:06→06:07)
[2021-08-20 06:30] VITALS: BP 133/85
== END 2021-08-20 06:31 | disposition home or self-care (01) ==
LOC: M ED 02:59
DX: N30.91 Cystitis, unspecified with hematuria (principal); K21.9 Gastro-esophageal reflux disease without esophagitis; Z79.899 Other long term (current) drug therapy
CPT/HCPCS: 74176; 80048; 80076; 81000; 83605; 83690; 85025; 96361; 96374; 96375; 99284; J1885; J2405

== ENCOUNTER → 2021-09-23 | Outpatient (CLI) | payer OTHER ==
[~2021-09-23] MED LIST changes: +CIPR-249 PO
[2021-09-23 10:15] LABS: INR 0.96; PROTHROMBIN TIME 13.2 SECONDS (12.7-14.5)
[2021-09-23 10:16] LABS: PARTIAL THROMBOPLASTIN TIME 29.3 SECONDS (25.9-37.0)
[2021-09-23 10:45] LABS: ALBUMIN 4.4 GM/DL (3.2-5.2); ALT/SGPT 42 U/L (12-78); BILIRUBIN,DIRECT 0.1 MG/DL (0.0-0.2); BILIRUBIN,TOTAL 0.6 MG/DL (0.2-1.0); HEPATITIS B SURFACE ANTIBODY POSITIVE (POSITIVE); TOTAL PROTEIN 7.9 GM/DL (6.4-8.2)
[2021-09-23 11:23] LABS: HEPATITIS C VIRUS ABY INDEX 0.2 INDEX (<0.8)
== END ==
LOC: M LAB 09:19
PROVIDERS: ATTEND Internal Medicine Gastroenterology
DX: K76.0 Fatty (change of) liver, not elsewhere classified (principal)